=== PATIENT | female | born 1965 | race African-American/Black ===

== ENCOUNTER → 2024-03-21 | Outpatient (CLI) | payer MEDICAID ==
[~2024-03-21] VITALS: Ht 162.6 cm; Wt 55.3 kg
[2024-03-21] MEDS: ADENOSINE 46 MG in GIVE UN-DILUTED 0 ML IV ONE (13:55)
--- NOTE | 2024-03-22 00:39 | DVHSR ---
APPROVED REPORT Exam: Nuclear Stress Test BMI: 0 Stress Test Details HR Max Heart Rate (APMHR): 164.557932 bpm Target HR (85% APMHR): 139.278324 bpm BP ECG Stress ECG Conclusion Resting ECG shows normal sinus rhythm. At peak stress level there is 1-2 mm of horizontal downslopin g ST segment depression across mostly suggestive of global ischemia. Resting images shows near homogeneous uptake of radioactive tracer throughout the myocardium without evidence of myocardial infarction. Stress images shows near homogeneous uptake of radioactive tracer throughout the myocardium without e vidence of myocardial ischemia. Well-preserved left ventricular systolic function at 68%. Impression: Negative stress for ischemia, low risk study. NM EXAM: Myocardial Perfusion REST/STRESS Imaging Protocol: Rest Tc-99m/Stress Tc-99m 1 day Resting Data Rest SPECT myocardial perfusion imaging was performed in supine position 60 minutes following the int ravenous injection of 13.5 mCi of Tc-99m Sestamibi. Time of rest injection: 1245 Time of rest imagin Administration Route: IV Administration Site: Right Wrist Pharmacologic Stress Pharmacologic stress test was performed by injecting Adenosine mg IV push followed by the intravenou s injection of 34 mCi of Tc-99m Sestamibi. Time of stress injection: 1359 Time of stress imagin Administration Route: IV Administration Site: Right Wrist Gated Stress SPECT was performed 60 minutes after stress injection. The images were gated to evaluate regional wall motion and calculate left ventricular ejection fracti on. Stress only was performed in the Supine position. Nuclear Conclusion Resting ECG shows normal sinus rhythm. At peak stress level there is 1-2 mm of horizontal downslopin g ST segment depression across mostly suggestive of global ischemia. Resting images shows near homogeneous uptake of radioactive tracer throughout the myocardium without evidence of myocardial infarction. Stress images shows near homogeneous uptake of radioactive tracer throughout the myocardium without e vidence of myocardial ischemia. Well-preserved left ventricular systolic function at 68%. Impression: Negative stress for ischemia, low risk study.
== END | disposition home or self-care (01) ==
LOC: XYW 12:18
PROVIDERS: ATTEND Specialist
DX: I10 Essential (primary) hypertension (principal); E11.9 Type 2 diabetes mellitus without complications
CPT/HCPCS: 78452; 93017; A9500; J0153